=== PATIENT | female | born 1950 | race Caucasian/White ===

== ENCOUNTER 2021-04-01 12:06 | Outpatient (CLI) | payer MEDICARE, OTHER ==
[2021-04-01] VITALS (17 sets, daily range): BP systolic 129–154; BP diastolic 59–81
== END 2021-04-01 23:59 | disposition home or self-care (01) ==
LOC: CARD DIAG 12:06
PROVIDERS: ATTEND Internal Medicine Interventional Cardiology
DX: R55 Syncope and collapse (principal)
CPT/HCPCS: 93660